=== PATIENT | female | born 1985 | race Two or more races ===

== ENCOUNTER 2023-04-17 22:55 | Inpatient (IN) | payer OTHER ==
[~2023-04-17] VITALS: Ht 157.5 cm; Wt 140.6 kg
[2023-04-18] MEDS ORDERED: ONDANSETRON ODT 4 MG TAB.RAPDIS SL ONE
[2023-04-18] MEDS ORDERED: ONDANSETRON ODT 4 MG TAB.RAPDIS ONE (00:15)
[2023-04-18] MEDS ORDERED: IV NORMAL SALINE 1000 ML BAG IV ONE (01:00)
[2023-04-18] MEDS ORDERED: FAMOTIDINE. 20 MG/2 ML VIAL IV ONE ×2 (01:00→01:21)
[2023-04-18 01:28] LABS: CREATININE 0.7 mg/dL (0.6-1.3); POTASSIUM 3.8 mmol/L (3.5-5.1)
[2023-04-18 01:34] LABS: ALBUMIN 3.4 g/dL (3.4-5.0); BILIRUBIN,DIRECT 0.8 mg/dL (0.0-0.2); TOTAL PROTEIN, SERUM 8.2 g/dL (6.4-8.2)
[2023-04-18] MEDS ORDERED: KETOROLAC TROMETHAMINE 30 MG INJ IVP ONE (01:45)
[2023-04-18 01:48] LABS: BASOPHILS % (AUTO) 0.2 % (0.0-2.0); EOSINOPHILS % (AUTO) 0.3 % (0.0-7.0); HEMOGLOBIN 14.1 g/dL (10.9-14.3); LYMPHOCYTES # (AUTO) 1.4 K/uL (0.8-4.8); MEAN CORPUSCULAR HEMOGLOBIN 30.8 uug (24.7-32.8); MEAN CORPUSCULAR HGB CONC 34 g/dL (32.3-35.6); MONOCYTES # (AUTO) 0.4 K/uL (0.1-1.30); MONOCYTES % (AUTO) 4.6 % (0.0-11.0); NEUTROPHILS # (AUTO) 6.8 K/uL (1.8-8.9); NEUTROPHILS % (AUTO) 78.9 % (38.5-71.5); PLATELET COUNT (AUTO) 245 K/uL (179-408); RED BLOOD CELL COUNT(AUTO) 4.56 MIL/uL (3.63-4.92); WHITE BLOOD COUNT (AUTO) 8.6 K/uL (3.8-11.8)
[2023-04-18 01:51] LABS: DIFFERENTIAL COMMENT 1
[2023-04-18 02:03] LABS: *BILIRUBIN,URIN NEGATIVE (NEGATIVE); *BLOOD, URINE NEGATIVE (NEGATIVE); *CLARITY,URINE CLOUDY (CLEAR); *COLOR,URINE YELLOW (YELLOW); *KETONES,URINE NEGATIVE (NEGATIVE); *PROTEIN,URINE 1+ (NEGATIVE); LEUKOCYTE ESTERASE ,URINE NEGATIVE (NEGATIVE); NITRITE, URINE NEGATIVE (NEGATIVE); PH,URINE 8.5 (5.0-8.0); UGLUCOSE NEGATIVE (NEGATIVE)
[2023-04-18] MEDS ORDERED: KETOROLAC TROMETHAMINE 30 MG INJ ONE (02:06)
[2023-04-18 02:38] LABS: *URINE HCG, QUAL NEGATIVE (NEGATIVE)
[2023-04-18 04:20] LABS: BACTERIA,URINE RARE /HPF (NONE SEEN); RBC,URINE 0-3 /HPF (0-3); SQUAMOUS EPITHELIAL CELL,UR FEW /HPF (NONE SEEN); URINE AMORPHOUS PHOSPHATES MANY /HPF; WBC,URINE 0-3 /HPF (0-3)
[2023-04-18] MEDS ORDERED: MORPHINE SULFATE 4 MG/1 ML DISP.SYRIN IV ONE ×2 (05:45→10:30)
[2023-04-18] MEDS ORDERED: MORPHINE SULFATE 4 MG/1 ML DISP.SYRIN ONE ×2 (05:47→10:31)
[2023-04-18] MEDS ORDERED: LIDOCAINE VISCUS 2% 15 ML UDC MM ONE (06:00)
[2023-04-18] MEDS ORDERED: MAG HYDROX/AL HYDROX/SIMETH 30 ML LIQUID UDC PO ONE (06:00)
[2023-04-18] MEDS ORDERED: LIDOCAINE VISCUS 2% 15 ML UDC ONE (06:30)
[2023-04-18] MEDS ORDERED: MAG HYDROX/AL HYDROX/SIMETH 30 ML LIQUID UDC ONE (06:30)
[2023-04-18] MEDS ORDERED: METOCLOPRAMIDE HCL 10 MG/2 ML VIAL IV ONE (07:30)
[2023-04-18] MEDS ORDERED: PANTOPRAZOLE SODIUM 40 MG VIAL IV ONE (07:30)
[2023-04-18] MEDS ORDERED: diphenhydrAMINE 50 MG/1 ML VIAL IV ONE (10:30)
[2023-04-18] MEDS ORDERED: diphenhydrAMINE 50 MG/1 ML VIAL ONE (10:31)
[2023-04-18] MEDS ORDERED: MAGNESIUM HYDROXIDE 30 ML LIQUID UDC PO PRN (12:15)
[2023-04-18] MEDS ORDERED: REMEDY ESSENTIAL ZINC PASTE 113 GM TP PRN (12:15)
[2023-04-18] MEDS: METOCLOPRAMIDE HCL 10 MG/2 ML VIAL IV SCH ×2 (14:00→23:13)
[2023-04-18] MEDS ORDERED: METOCLOPRAMIDE HCL 10 MG/2 ML VIAL ONE (16:17)
[2023-04-18] MEDS: IV NS 1000 ML 1,000 ML IV PRN (16:48)
[2023-04-18] MEDS ORDERED: ONDANSETRON 4 MG/2 ML VIAL ONE (22:10)
[2023-04-18] MEDS: ONDANSETRON 4 MG/2 ML VIAL IV PRN (22:14)
[2023-04-18 22:30] VITALS: BP 118/77; TEMP 98.4; O2SAT 94
[2023-04-19] VITALS (7 sets, daily range): BP systolic 90–143; BP diastolic 45–79; TEMP 98.5–103; O2SAT 94–98
[2023-04-19] MEDS: ACETAMINOPHEN 325 MG TABLET PO PRN ×2 (03:35→16:17)
[2023-04-19] MEDS: MORPHINE SULFATE 2 MG/1 ML DISP.SYRIN IV PRN ×4 (04:22→20:01)
[2023-04-19] MEDS: METOCLOPRAMIDE HCL 10 MG/2 ML VIAL IV SCH ×3 (06:11→21:54)
[2023-04-19 06:22] LABS: BASOPHILS % (AUTO) 0.1 % (0.0-2.0); EOSINOPHILS % (AUTO) 0.1 % (0.0-7.0); HEMATOCRIT 39.2 % (31.2-41.9); HEMOGLOBIN 13.2 g/dL (10.9-14.3); LYMPHOCYTES # (AUTO) 0.3 K/uL (0.8-4.8); LYMPHOCYTES % (AUTO) 1.9 % (20.5-51.5); MEAN CORPUSCULAR HEMOGLOBIN 30.6 uug (24.7-32.8); MEAN CORPUSCULAR HGB CONC 34 g/dL (32.3-35.6); MEAN CORPUSCULAR VOLUME 91.3 fL (75.5-95.3); MONOCYTES # (AUTO) 0.5 K/uL (0.1-1.30); MONOCYTES % (AUTO) 3.2 % (0.0-11.0); NEUTROPHILS # (AUTO) 13.9 K/uL (1.8-8.9); NEUTROPHILS % (AUTO) 94.7 % (38.5-71.5); PLATELET COUNT (AUTO) 157 K/uL (179-408); RED BLOOD CELL COUNT(AUTO) 4.29 MIL/uL (3.63-4.92); RED CELL DISTRIBUTION WIDTH 13.2 % (12.3-17.7); WHITE BLOOD COUNT (AUTO) 14.7 K/uL (3.8-11.8)
[2023-04-19 06:45] LABS: ALBUMIN 2.7 g/dL (3.4-5.0); BILIRUBIN,TOTAL 4.6 mg/dL (0.2-1.0); CALCIUM 8.3 mg/dL (8.5-10.1); CREATININE 0.6 mg/dL (0.6-1.3); MAGNESIUM 1.9 mg/dL (1.8-2.4); TOTAL PROTEIN, SERUM 7.2 g/dL (6.4-8.2)
[2023-04-19 07:09] LABS: DIFFERENTIAL COMMENT 1
[2023-04-19] MEDS: PANTOPRAZOLE SODIUM 40 MG VIAL IV SCH (08:45)
[2023-04-19] MEDS: ONDANSETRON 4 MG/2 ML VIAL IV PRN (10:42)
[2023-04-19] MEDS: POTASSIUM CHLORIDE 10 MEQ TAB.PRT.SR PO SCH ×2 (12:16→16:17)
[2023-04-19] MEDS ORDERED: ESCI20TA PO (12:31)
[2023-04-19] MEDS ORDERED: OLAN5TAB70 PO (12:32)
[2023-04-19] MEDS ORDERED: NEUTRA PHOS PACKET PO ONE (15:45)
[2023-04-19] MEDS: PIPERACILLIN SODIUM/TAZOBACTAM 3.375 G in IV DEXTROSE 5% 100 ML IV SCH ×2 (17:08→21:50)
[2023-04-19] MEDS ORDERED: PIPERACILLIN SODIUM/TAZOBACTAM 3.375 G in IV DEXTROSE 5% 50 ML IV SCH (18:00)
[2023-04-20] MEDS: MORPHINE SULFATE 2 MG/1 ML DISP.SYRIN IV PRN ×3 (01:26→12:52)
[2023-04-20] MEDS: ONDANSETRON 4 MG/2 ML VIAL IV PRN (01:27)
[2023-04-20] MEDS: PIPERACILLIN SODIUM/TAZOBACTAM 3.375 G in IV DEXTROSE 5% 100 ML IV SCH (05:17)
[2023-04-20] MEDS: METOCLOPRAMIDE HCL 10 MG/2 ML VIAL IV SCH ×2 (05:17→13:59)
[2023-04-20 06:15] LABS: BASOPHILS % (AUTO) 0.2 % (0.0-2.0); HEMATOCRIT 37.2 % (31.2-41.9); HEMOGLOBIN 12.4 g/dL (10.9-14.3); LYMPHOCYTES # (AUTO) 0.4 K/uL (0.8-4.8); LYMPHOCYTES % (AUTO) 2.1 % (20.5-51.5); MEAN CORPUSCULAR HEMOGLOBIN 30.8 uug (24.7-32.8); MEAN CORPUSCULAR HGB CONC 33 g/dL (32.3-35.6); MEAN CORPUSCULAR VOLUME 92.1 fL (75.5-95.3); MONOCYTES # (AUTO) 0.5 K/uL (0.1-1.30); NEUTROPHILS # (AUTO) 16.4 K/uL (1.8-8.9); NEUTROPHILS % (AUTO) 94.7 % (38.5-71.5); PLATELET COUNT (AUTO) 58 K/uL (179-408); RED BLOOD CELL COUNT(AUTO) 4.04 MIL/uL (3.63-4.92); RED CELL DISTRIBUTION WIDTH 13.8 % (12.3-17.7); WHITE BLOOD COUNT (AUTO) 17.3 K/uL (3.8-11.8)
[2023-04-20 06:25] LABS: DIFFERENTIAL COMMENT 1
[2023-04-20 06:43] LABS: ALBUMIN 2.2 g/dL (3.4-5.0); BILIRUBIN,TOTAL 4.7 mg/dL (0.2-1.0); CALCIUM 8.4 mg/dL (8.5-10.1); CREATININE 1.6 mg/dL (0.6-1.3); POTASSIUM 3.6 mmol/L (3.5-5.1); TOTAL PROTEIN, SERUM 6.2 g/dL (6.4-8.2)
[2023-04-20] MEDS: IV NS 1000 ML 1,000 ML IV PRN (06:58)
[2023-04-20 07:23] VITALS: BP 107/59; TEMP 98; O2SAT 96
[2023-04-20 08:00] VITALS: BP_SYST 105; BP_SYST 116; BP_DIAS 49; BP_DIAS 66; TEMP 98.7; TEMP 99.2; O2SAT 95
[2023-04-20] MEDS: PANTOPRAZOLE SODIUM 40 MG VIAL IV SCH (08:56)
[2023-04-20] MEDS: ACETAMINOPHEN 325 MG TABLET PO PRN (10:53)
[2023-04-20 12:00] VITALS: O2SAT 98
[2023-04-20 12:30] VITALS: BP 103/64; TEMP 98.4; O2SAT 95
[2023-04-20] MEDS ORDERED: METRONIDAZOLE 500 MG/NS 100ML 500 MG in PREMIXED 1 EACH IV SCH (14:00)
[2023-04-20] MEDS ORDERED: CEFTRIAXONE 2 G in IV DEXTROSE 5% 100 ML IV SCH (15:00)
[2023-04-20 16:00] VITALS: BP 115/65; TEMP 97.9; O2SAT 94
== END 2023-04-20 20:10 | disposition short-term general hospital (02) ==
LOC: ER 23:00 → TRANSITION 04-18 16:30 → MEDSURG3 04-18 22:15
PROVIDERS: ADMIT Nurse Practitioner Acute Care; ATTEND Nurse Practitioner Acute Care
DX: K76.0 Fatty (change of) liver, not elsewhere classified (principal); K83.8 Other specified diseases of biliary tract; Z68.43 Body mass index [BMI] 50.0-59.9, adult; R74.8 Abnormal levels of other serum enzymes; R11.2 Nausea with vomiting, unspecified; R74.01 Elevation of levels of liver transaminase levels; E66.01 Morbid (severe) obesity due to excess calories; R16.1 Splenomegaly, not elsewhere classified; Z90.49 Acquired absence of other specified parts of digestive tract; R73.03 Prediabetes; F20.9 Schizophrenia, unspecified; Z88.2 Allergy status to sulfonamides; D72.829 Elevated white blood cell count, unspecified; R03.0 Elevated blood-pressure reading, without diagnosis of hypertension
CPT/HCPCS: 36415; 74181; 76705; 83690; 83735; 84100; 84703; 85025; A4663; C9113; G0378; J0696; J1200; J1885; J2270; J2405; J2543; J2765; J3490; J7040; J7042; Q0162